=== PATIENT | female | born 1995 | race Caucasian/White ===

== ENCOUNTER 2018-09-10 20:10 | Emergency (ER) | payer OTHER ==
[~2018-09-10] VITALS: Ht 162.6 cm; Wt 61.4 kg
[2018-09-10 20:11] VITALS: BP 138/90
[2018-09-10] MEDS ORDERED: bcp PO (20:29)
[2018-09-10] MEDS ORDERED: TYLETAB14 PO (20:29)
[2018-09-10] MEDS ORDERED: ROBA500T PO (20:29)
[2018-09-10] MEDS ORDERED: B-COTAB26 PO (20:29)
[2018-09-10] MEDS ORDERED: PRENTAB53 PO (20:29)
--- NOTE | 2018-09-11 00:56 | REP ---
Clinical: Trauma. Technique: AP, lateral views right humerus . Findings: The osseous structures and joint spaces are intact and normal. There is no evidence for acute fracture or dislocation. Surrounding soft tissues are unremarkable. No subcutaneous emphysema or radiodense foreign body. Impression: No acute fracture or dislocation. Electronically Signed by Bhupinder Agustin MD 09/11/2018 12:47 A
--- NOTE | 2018-09-11 00:57 | REP ---
Clinical: Trauma with right shoulder pain . Technique: Internal rotation, external rotation, and Y view. Findings: No acute fracture or dislocation. The acromioclavicular and glenohumeral joints are intact. No periarticular calcifications or degenerative changes are appreciated. Sub acromial space is normal. Surrounding soft tissues are unremarkable. Impression: Normal right shoulder radiographs. Electronically Signed by Bhupindre Agustin MD 09/11/2018 12:48 A
== END 2018-09-10 22:32 | disposition home or self-care (01) ==
LOC: M ED 20:10
DX: M25.511 Pain in right shoulder (principal); Z79.899 Other long term (current) drug therapy; Z88.2 Allergy status to sulfonamides